=== PATIENT | male | born 1975 | race Caucasian/White ===

== ENCOUNTER 2017-02-10 23:02 | Inpatient (IN) | payer OTHER ==
[~2017-02-10] VITALS: Ht 175.3 cm; Wt 139.7 kg
[~2017-02-10 23:02] MED LIST: APAP/HYDROCODON1 T13 PO; COLACE100 MG PO; HYDROCHLOROTH12.5 M2 PO; KEFLEX250 MG PO; LAC PO; NOR10 PO; PRI20 PO; ROB750 PO; TENORMIN100 MG PO; ZES20 PO; ZOC10 PO
[2017-02-11 00:56] LABS: BASOPHIL % 0.4 % (0-2); PLATELET COUNT 273 x10^3mcL (130-400); RED CELL DISTRIBUTION WIDTH 14.3 % (11.5-14.5)
[2017-02-11 01:02] LABS: CALCIUM 9.1 mg/dL (8.5-10.1); CARBON DIOXIDE 27.3 mmol/L (21-32); CHLORIDE SERUM 103 mmol/L (98-107); CREATININE SERUM 1.1 mg/dL (0.7-1.3); GFR1 > 60 mL/min; GLUCOSE SERUM 95 mg/dL (74-106); SODIUM SERUM 142 mmol/L (136-145)
[2017-02-11 01:27] LABS: FREE T4 1.21 ng/dL (0.76-1.46); FREE THYROXINE INDEX 3.1 ug/dL (1.4-4.5); T4(THYROXINE) 8.6 ug/dL (4.7-13.3)
[2017-02-11 01:28] LABS: ALBUMIN 4.3 g/dL (3.4-5.0); ALKALINE PHOSPHATASE 60 U/L (46-116); ALT/SGPT 62 U/L (16-63); AST/SGOT 33 U/L (15-37); BILIRUBIN TOTAL 0.61 mg/dL (0.20-1.00); C REACTIVE PROTEIN 4.8 mg/dL (<=0.9)
[2017-02-11 01:29] LABS: TOTAL PROTEIN, SERUM 8.3 g/dL (6.4-8.2)
[2017-02-11 01:30] LABS: CK-MB 3.4 ng/mL (0-3.6)
[2017-02-11 01:44] VITALS: BP 128/75
[2017-02-11 01:45] LABS: PHOSPHOROUS 3.6 mg/dL (2.5-4.9)
[2017-02-11 01:47] LABS: CHOLESTEROL/HDL RATIO 2.9
[2017-02-11 01:52] LABS: T3 TOTAL 1.23 ng/mL
[2017-02-11 02:06] LABS: ERYTHROCYTE SED RATE 21 mm/hr (0-15)
[2017-02-11 05:25] VITALS: BP 137/92
[2017-02-11 06:40] LABS: BASOPHIL % 0.3 % (0-2); PLATELET COUNT 232 x10^3mcL (130-400); RED CELL DISTRIBUTION WIDTH 14.4 % (11.5-14.5)
[2017-02-11 06:53] LABS: microscopic required? NO
[2017-02-11 06:59] LABS: CALCIUM 8.1 mg/dL (8.5-10.1); CARBON DIOXIDE 26.6 mmol/L (21-32); CHLORIDE SERUM 106 mmol/L (98-107); GFR1 > 60 mL/min; GLUCOSE SERUM 95 mg/dL (74-106); SODIUM SERUM 142 mmol/L (136-145)
[2017-02-11 07:26] LABS: UA SPECIFIC GRAVITY 1.025 (1.005-1.035); urine erythrocyte NEGATIVE (NEGATIVE)
[2017-02-11 07:32] LABS: AMPHETAMINE QUAL UR POSITIVE (NEG <=1000)
[2017-02-11 09:26] VITALS: BP 140/92
[2017-02-11 13:18] VITALS: BP 111/77
[2017-02-11 17:02] VITALS: BP 112/68
[2017-02-11 20:54] VITALS: BP 103/59
[2017-02-12 05:55] VITALS: BP 108/68
[2017-02-12 06:34] LABS: BASOPHIL % 0.1 % (0-2); PLATELET COUNT 242 x10^3mcL (130-400); RED CELL DISTRIBUTION WIDTH 14.4 % (11.5-14.5)
[2017-02-12 06:53] LABS: CALCIUM 8.1 mg/dL (8.5-10.1); CARBON DIOXIDE 30.5 mmol/L (21-32); CHLORIDE SERUM 105 mmol/L (98-107); CREATININE SERUM 1.1 mg/dL (0.7-1.3); GFR1 > 60 mL/min; GLUCOSE SERUM 152 mg/dL (74-106); MAGNESIUM 1.9 mg/dL (1.8-2.4); PHOSPHOROUS 3.1 mg/dL (2.5-4.9); POTASSIUM SERUM 3.8 mmol/L (3.5-5.1); SODIUM SERUM 141 mmol/L (136-145)
[2017-02-12 09:44] VITALS: BP 132/83
[2017-02-12 13:45] VITALS: BP 114/76
[2017-02-12 17:08] VITALS: BP 128/98
[2017-02-12 19:40] VITALS: BP 137/77
[2017-02-13 05:37] VITALS: BP 139/86
[2017-02-13 06:36] LABS: CHLORIDE SERUM 107 mmol/L (98-107); CREATININE SERUM 0.8 mg/dL (0.7-1.3); GFR1 > 60 mL/min; GLUCOSE SERUM 80 mg/dL (74-106); MAGNESIUM 1.6 mg/dL (1.8-2.4); PHOSPHOROUS 2.7 mg/dL (2.5-4.9); POTASSIUM SERUM 3.2 mmol/L (3.5-5.1); SODIUM SERUM 144 mmol/L (136-145)
[2017-02-13 07:18] LABS: BASOPHIL % 0.5 % (0-2); PLATELET COUNT 247 x10^3mcL (130-400); RED CELL DISTRIBUTION WIDTH 14.5 % (11.5-14.5)
[2017-02-13 08:52] VITALS: Ht 175.3 cm; Wt 139.7 kg
[2017-02-13 09:43] VITALS: BP 123/85
[2017-02-13 16:55] VITALS: BP 122/84
[2017-02-13 20:09] VITALS: BP 112/58
[2017-02-13 21:39] VITALS: BP 144/89
[2017-02-14 05:41] VITALS: BP 129/94
[2017-02-14 06:36] LABS: BASOPHIL % 0.5 % (0-2); PLATELET COUNT 281 x10^3mcL (130-400); RED CELL DISTRIBUTION WIDTH 14.4 % (11.5-14.5)
[2017-02-14 06:48] LABS: CALCIUM 8.5 mg/dL (8.5-10.1); CARBON DIOXIDE 30.6 mmol/L (21-32); CHLORIDE SERUM 103 mmol/L (98-107); GFR1 > 60 mL/min; GLUCOSE SERUM 94 mg/dL (74-106); MAGNESIUM 1.9 mg/dL (1.8-2.4); PHOSPHOROUS 3.9 mg/dL (2.5-4.9); POTASSIUM SERUM 3.9 mmol/L (3.5-5.1); SODIUM SERUM 143 mmol/L (136-145)
[2017-02-14] MEDS ORDERED: BACTRIM DS1 TAB PO (09:08)
[2017-02-14] MEDS ORDERED: LAC PO (09:09)
[2017-02-14 09:15] VITALS: BP 132/89
[2017-02-14 12:21] VITALS: BP 132/89
== END 2017-02-14 14:33 | disposition home or self-care (01) | DRG 383 ==
LOC: ED 23:02 → DU 02-11 00:37 → MU 02-12 11:48
PROVIDERS: Family Medicine; Specialist; Surgery; ADMIT Family Medicine
PROC: 0J953ZZ Drainage of Left Neck Subcutaneous Tissue and Fascia, Percutaneous Approach (ICD-10-PCS; principal; 2017-02-11 14:30)
DX: L02.11 Cutaneous abscess of neck (principal); N17.0 Acute kidney failure with tubular necrosis; E43 Unspecified severe protein-calorie malnutrition; I10 Essential (primary) hypertension; E66.01 Morbid (severe) obesity due to excess calories; E87.6 Hypokalemia; F15.10 Other stimulant abuse, uncomplicated; E78.5 Hyperlipidemia, unspecified; E02 Subclinical iodine-deficiency hypothyroidism; Z82.49 Family history of ischemic heart disease and other diseases of the circulatory system; Z68.42 Body mass index [BMI] 45.0-49.9, adult
CPT/HCPCS: 83880; 84439; 94150; J2175; J2250; J2270; J2405; J2543; J2704; J3010; J3475; J3480; J3490; J7030; Q0092

== ENCOUNTER 2017-10-13 21:07 | Inpatient (IN) | payer OTHER ==
[~2017-10-13] VITALS: Ht 182.9 cm; Wt 130.7 kg
[~2017-10-13 21:07] MED LIST changes: +BACTRIM DS1 TAB PO
[2017-10-13 21:28] VITALS: Ht 182.9 cm; Wt 130.7 kg
[2017-10-13 22:08] LABS: CALCIUM 9.1 mg/dL (8.5-10.1); CARBON DIOXIDE 27.7 mmol/L (21-32); CHLORIDE SERUM 103 mmol/L (98-107); CREATININE SERUM 1.3 mg/dL (0.7-1.3); GFR1 > 60 mL/min; GLUCOSE SERUM 107 mg/dL (74-106); POTASSIUM SERUM 3.2 mmol/L (3.5-5.1); SODIUM SERUM 143 mmol/L (136-145)
[2017-10-13 22:13] LABS: ALBUMIN 3.8 g/dL (3.4-5.0); ALKALINE PHOSPHATASE 51 U/L (46-116); ALT/SGPT 47 U/L (16-63); AST/SGOT 38 U/L (15-37); BILIRUBIN TOTAL 0.53 mg/dL (0.20-1.00); TOTAL PROTEIN, SERUM 8.2 g/dL (6.4-8.2)
[2017-10-13 22:24] LABS: BASOPHIL % 0.3 % (0-2); PLATELET COUNT 292 x10^3mcL (130-400); RED CELL DISTRIBUTION WIDTH 16.1 % (11.5-14.5)
[2017-10-14 02:16] LABS: CHOLESTEROL/HDL RATIO 3.2; MAGNESIUM 1.8 mg/dL (1.8-2.4); PHOSPHOROUS 3.1 mg/dL (2.5-4.9)
[2017-10-14 02:22] LABS: FREE T4 1.19 ng/dL (0.76-1.46); FREE THYROXINE INDEX 3.4 ug/dL (1.4-4.5); T4(THYROXINE) 9.5 ug/dL (4.7-13.3)
[2017-10-14 02:31] LABS: T3 TOTAL 1.01 ng/mL
[2017-10-14 02:56] VITALS: BP 182/139
[2017-10-14 03:41] LABS: microscopic required? NO
[2017-10-14 03:48] LABS: UA SPECIFIC GRAVITY 1.015 (1.005-1.035); urine erythrocyte NEGATIVE (NEGATIVE)
[2017-10-14 03:54] LABS: AMPHETAMINE QUAL UR POSITIVE (NEG <=1000)
[2017-10-14 06:02] VITALS: BP 152/115
[2017-10-14 06:26] LABS: BASOPHIL % 0.4 % (0-2); PLATELET COUNT 317 x10^3mcL (130-400)
[2017-10-14 06:55] LABS: CALCIUM 8.5 mg/dL (8.5-10.1); CARBON DIOXIDE 28.4 mmol/L (21-32); CHLORIDE SERUM 103 mmol/L (98-107); GFR1 > 60 mL/min; GLUCOSE SERUM 96 mg/dL (74-106); POTASSIUM SERUM 3.4 mmol/L (3.5-5.1); SODIUM SERUM 143 mmol/L (136-145)
== END 2017-10-14 07:45 | disposition left against medical advice (07) | DRG 199 ==
LOC: ED 21:07 → DU 10-14 01:34
PROVIDERS: Emergency Medicine; Student in an Organized Health Care Education/Training Program
DX: I16.0 Hypertensive urgency (principal); N17.0 Acute kidney failure with tubular necrosis; I10 Essential (primary) hypertension; E87.2 Acidosis; E78.00 Pure hypercholesterolemia, unspecified; T43.625A Adverse effect of amphetamines, initial encounter; E87.6 Hypokalemia; Z53.21 Procedure and treatment not carried out due to patient leaving prior to being seen by health care provider; R00.0 Tachycardia, unspecified; Y92.89 Other specified places as the place of occurrence of the external cause; Z82.49 Family history of ischemic heart disease and other diseases of the circulatory system
CPT/HCPCS: 83880; 84439; G0480; J0360; J2060; J7030